=== PATIENT | male | born 1970 | race African-American/Black ===

== ENCOUNTER 2019-11-06 00:40 | Observation (INO) ==
[2019-11-06] MEDS ORDERED: diphenhydrAMINE CAP 25 MG CAPSULE PO PRN (03:14)
[2019-11-06] MEDS ORDERED: MAGNESIUM SULF RIDER 4 GM in PREMIX 1 EACH IV PRN (03:14)
[2019-11-06] MEDS ORDERED: ACETAMINOPHEN 325 MG TABLET PO PRN (03:14)
[2019-11-06] MEDS ORDERED: MORPHINE 4 MG/1 ML VIAL IV PRN (03:14)
[2019-11-06] MEDS ORDERED: guaiFENesin/DM ER 600-30 MG TABLET PO PRN (03:14)
[2019-11-06 03:30] LABS: Basophils % 0.5 % (0.0-0.8); Eosinophils % 0.3 % (0.00-10.9); Hematocrit 29.3 VOL% (42.0-52.0); Hemoglobin 9.8 GM/DL (14.0-18.0); Immature Granulocytes % 0.5 %; Immature Granulocytes Absolute 0.02 #; Lymphocytes # 1.1 10*3/uL (1.4-4.0); Lymphocytes % 28.8 % (21.2-54.2); Mean Corpuscular HGB Conc 33.4 GM/DL (32-36); Mean Corpuscular Volume 100.3 FL (87-102); Mean Platelet Volume 9.7 FL (9.6-12.0); Monocytes % 11.3 % (1.7-12.7); Neutrophils % 58.6 % (38.7-73.9); Red Blood Count 2.92 MC/CUMM (3.8-5.5); Red Cell Distribution Width 19.9 % (9.3-17.3); White Blood Count 3.9 T/CUMM (4-12)
[2019-11-06 03:36] LABS: Platelet Count 69 T/CUMM (130-400)
[2019-11-06 03:47] LABS: Albumin 3.6 G/DL (3.4-5.0); Bilirubin,Total 1.3 MG/DL (0.2-1.0); Calcium 8.4 MG/DL (8.5-10.1); Osmolality,Calculated 278.1 MOS/KG (273-304); Total Protein 7.8 G/DL (6.4-8.3)
[2019-11-06] MEDS ORDERED: PNEUMOCOCCAL VACCINE (23 VALENT) 0.5 ML VIAL IM ONE (03:50)
[2019-11-06] MEDS ORDERED: INFLUENZA VIRUS VACCINE 0.5 ML SYRINGE IM ONE (03:51)
[2019-11-06 04:05] LABS: Risk Ratio 4.17; Thyroid Stimulating Hormone 0.885 uIU/ml (0.358-3.74)
[2019-11-06] MEDS: NICOTINE 21 MG/24 HR PATCH TRANSDERM PRN (04:34)
[2019-11-06] MEDS: FOLIC ACID 1 MG TABLET PO SCH (08:44)
[2019-11-06] MEDS: MULTIVITAMIN (CENTRUM) TABLET PO SCH (08:44)
[2019-11-06 09:24] LABS: Barbiturates Screen,Urine Negative (Negative); Benzodiazepines Screen,Urine Negative (Negative); Cannabinoid Screen,Urine Negative (Negative); Opiate Screen,Urine Negative (Negative); Phencyclidine Screen,Urine Negative (Negative)
[2019-11-06 09:30] LABS: Apearance,Urine CLEAR (Clear); Bilirubin,Urine Negative (Negative); Blood, Urine Negative (Negative); Glucose,Urine (UA) Negative (Negative); Ketones,Urine 80 mg/dL (Negative); Mucus,Urine Occasional /LPF (Occasional); Nitrite,Urine Negative (Negative); Protein,Urine 30 MG/DL; RBC,Urine 2 /HPF (0-4); Urine Color Yellow (Yellow); Urine Specific Gravity 1.016 (1.001-1.035); WBC,Urine 9 /HPF (0-6)
[2019-11-06] MEDS: PANTOPRAZOLE 40 MG VIAL IV SCH ×2 (10:52→20:46)
[2019-11-06] MEDS: SODIUM CHLORIDE 0.9% 1,000 ML IV SCH ×2 (10:52→18:09)
[2019-11-06] MEDS: POTASSIUM CHLORIDE 20 MEQ TABLET PO PRN ×2 (15:04→17:05)
[2019-11-06] MEDS: THIAMINE INJ 100 MG, FOLIC ACID INJ 1 MG, MULTIVITAMIN INJ 10 ML in SODIUM CHLORIDE 0.9... IV SCH (18:08)
[2019-11-06] MEDS: LORazepam 2 MG/1 ML VIAL IV PRN (20:46)
[2019-11-06] MEDS ORDERED: LORazepam 2 MG/1 ML VIAL IV STA (23:28)
[2019-11-07] MEDS: SODIUM CHLORIDE 0.9% 1,000 ML IV SCH ×3 (05:16→17:01)
[2019-11-07 06:13] LABS: Eosinophils % 0.6 % (0.00-10.9); Hematocrit 29.8 VOL% (42.0-52.0); Hemoglobin 10.1 GM/DL (14.0-18.0); Immature Granulocytes % 0.6 %; Immature Granulocytes Absolute 0.02 #; Lymphocytes # 0.8 10*3/uL (1.4-4.0); Lymphocytes % 23.3 % (21.2-54.2); Mean Corpuscular HGB Conc 33.9 GM/DL (32-36); Mean Platelet Volume 11.9 FL (9.6-12.0); Monocytes % 11.1 % (1.7-12.7); Neutrophils % 64.4 % (38.7-73.9); Platelet Count 59 T/CUMM (130-400); Red Blood Count 3.01 MC/CUMM (3.8-5.5); Red Cell Distribution Width 19.3 % (9.3-17.3); White Blood Count 3.5 T/CUMM (4-12)
[2019-11-07 06:35] LABS: Hypochromasia 1+; Microcytosis 1+; Platelet Estimate Decreased
[2019-11-07 06:44] LABS: Albumin 3.5 G/DL (3.4-5.0); Calcium 8.6 MG/DL (8.5-10.1); Osmolality,Calculated 271.7 MOS/KG (273-304); Total Protein 7.5 G/DL (6.4-8.3)
[2019-11-07] MEDS: FOLIC ACID 1 MG TABLET PO SCH (08:51)
[2019-11-07] MEDS: MULTIVITAMIN (CENTRUM) TABLET PO SCH (08:51)
[2019-11-07] MEDS: PANTOPRAZOLE 40 MG VIAL IV SCH ×2 (08:51→20:00)
[2019-11-07] MEDS: NICOTINE 21 MG/24 HR PATCH TRANSDERM PRN (09:44)
[2019-11-07] MEDS: LORazepam 2 MG/1 ML VIAL IV PRN ×2 (09:45→14:32)
[2019-11-07] MEDS: POTASSIUM CHLORIDE 20 MEQ TABLET PO PRN ×4 (09:45→19:39)
[2019-11-07] MEDS: MAGNESIUM SULF RIDER 2 GM in PREMIX 1 EACH IV PRN (09:45)
[2019-11-07] MEDS ORDERED: SODIUM CHLORIDE 0.9% 1,000 ML IV PRN (12:35)
[2019-11-07 12:59] LABS: Hematocrit 28.1 VOL% (42.0-52.0); Hemoglobin 9.6 GM/DL (14.0-18.0)
[2019-11-07 13:31] LABS: PT Patient Result 11.2 SECS (9.6-12.2)
[2019-11-07] MEDS ORDERED: propofoL 200 MG/20 ML VIAL IV ONE (13:40)
[2019-11-07] MEDS ORDERED: SEVOFLURANE 1 UNIT/15 MINUTE INH ONE (13:40)
[2019-11-07] MEDS ORDERED: LIDOCAINE 2% 5 ML VIAL ONE (13:40)
[2019-11-07] MEDS ORDERED: ONDANSETRON 4 MG/2 ML VIAL ONE (13:41)
[2019-11-07] MEDS ORDERED: ROCURONIUM 100 MG/10 ML VIAL IV ONE (13:41)
[2019-11-07] MEDS ORDERED: SUCCINYLCHOLINE 200 MG/10 ML VIAL ONE (13:41)
[2019-11-07] MEDS ORDERED: fentaNYL 100 MCG/2 ML VIAL ONE (13:41)
[2019-11-07 13:58] LABS: PT Patient Result 11.2 SECS (9.6-12.2); Partial Thromboplastin Time 25.4 SECS (20.8-36.0)
[2019-11-07] MEDS: ONDANSETRON 4 MG/2 ML VIAL IV PRN ×2 (17:29→21:05)
[2019-11-07] MEDS: THIAMINE INJ 100 MG, FOLIC ACID INJ 1 MG, MULTIVITAMIN INJ 10 ML in SODIUM CHLORIDE 0.9... IV SCH ×2 (19:31→21:41)
[2019-11-08] MEDS: POTASSIUM CHLORIDE RIDER 10 MEQ in PREMIX 1 EACH IV SCH ×4 (01:22→04:32)
[2019-11-08] MEDS: SODIUM CHLORIDE 0.9% 1,000 ML IV SCH (02:24)
[2019-11-08] MEDS: LORazepam 2 MG/1 ML VIAL IV PRN (04:15)
[2019-11-08 06:31] LABS: Basophils % 0.3 % (0.0-0.8); Eosinophils % 0.8 % (0.00-10.9); Hematocrit 28.5 VOL% (42.0-52.0); Hemoglobin 9.8 GM/DL (14.0-18.0); Immature Granulocytes % 0.3 %; Immature Granulocytes Absolute 0.01 #; Lymphocytes # 0.7 10*3/uL (1.4-4.0); Mean Corpuscular HGB Conc 34.4 GM/DL (32-36); Mean Platelet Volume 11.1 FL (9.6-12.0); Monocytes % 10.4 % (1.7-12.7); Neutrophils % 70.2 % (38.7-73.9); Red Blood Count 2.88 MC/CUMM (3.8-5.5); Red Cell Distribution Width 19.2 % (9.3-17.3); White Blood Count 3.8 T/CUMM (4-12)
[2019-11-08 06:44] LABS: Platelet Count 82 T/CUMM (130-400)
[2019-11-08 06:51] LABS: Calcium 8.6 MG/DL (8.5-10.1); Osmolality,Calculated 268.8 MOS/KG (273-304)
[2019-11-08 07:57] VITALS: BP 140/98
[2019-11-08] MEDS: POTASSIUM CHLORIDE 20 MEQ TABLET PO PRN ×2 (09:34→11:31)
[2019-11-08] MEDS: FOLIC ACID 1 MG TABLET PO SCH (09:34)
[2019-11-08] MEDS: MULTIVITAMIN (CENTRUM) TABLET PO SCH (09:36)
[2019-11-08] MEDS: PANTOPRAZOLE 40 MG VIAL IV SCH (09:36)
[2019-11-08] MEDS: MAGNESIUM SULF RIDER 2 GM in PREMIX 1 EACH IV PRN (09:37)
== END 2019-11-08 11:42 | disposition home or self-care (01) ==
LOC: N.TELES 01:56 → INTOOBSV 01:56
PROVIDERS: ADMIT Internal Medicine; ATTEND Internal Medicine